=== PATIENT | female | born 1980 | race Caucasian/White ===

== ENCOUNTER → 2016-11-14 | Outpatient (CLI) | payer BC ==
--- NOTE | 2016-11-14 09:11 | MM ---
Reason for exam: screening (asymptomatic). Baseline mammogram. History: Family history of breast cancer in paternal aunt at age 47. Took hormonal contraceptives for 16 years beginning at age 15. Physical Findings: Nurse did not find any significant physical abnormalities on exam. MG Screening Mammo w CAD Bilateral CC and MLO view(s) were taken. The breast tissue is heterogeneously dense. This may lower the sensitivity of mammography. There is no discrete abnormality. These results were verbally communicated with the patient and result sheet given to the patient on 11/14/16. ASSESSMENT: Negative, BI-RAD 1 RECOMMENDATION: Routine screening mammogram of both breasts at age 39.
== END | disposition home or self-care (01) ==
LOC: RADMAMWWP 07:56
PROVIDERS: ATTEND Obstetrics & Gynecology
DX: Z12.31 Encounter for screening mammogram for malignant neoplasm of breast (principal)

== ENCOUNTER 2019-07-06 09:08 | Emergency (ER) | payer BC, OTHER ==
[2019-07-06 09:14] VITALS: BP 138/87; PULSE 72; RESP 18; TEMP 97.9
--- NOTE | 2019-07-06 09:25 | ED ---
Upper Extremity HPI - General Chief Complaint: Extremity Injury, Upper Stated Complaint: IHS LT wrist injury Time Seen by Provider: 07/06/19 09:14 Source: patient, RN notes reviewed, old records reviewed Mode of arrival: ambulatory Limitations: no limitations - History of Present Illness Initial Comments: Patient is a pleasant 39-year-old female who presents for today with left wrist and hand pain. 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 Patient states that she fell on outstretched hand. She reports pain is mainly over the distal ulna and fourth and fifth digit. - Related Data Previous Rx's Medication Instructions Recorded Ibuprofen [Motrin] 600 mg PO Q8HR PRN #20 tab 07/06/19 Allergies Allergy/AdvReac Type Severity Reaction Status Date / Time No Known Allergies Allergy Verified 07/06/19 09:13 Review of Systems ROS Statement: Those systems with pertinent positive or pertinent negative responses have been documented in the HPI. ROS Other: All systems not noted in ROS Statement are negative. Past Medical History Past Medical History: Thyroid Disorder History of Any Multi-Drug Resistant Organisms: None Reported Past Surgical History: Section, Tubal Ligation Past Psychological History: No Psychological Hx Reported Smoking Status: Never smoker Past Alcohol Use History: Occasional Past Drug Use History: None Reported General Exam - General Exam Comments Initial Comments: 39-year-old. Alert and oriented 3. No distress. Limitations: no limitations General appearance: alert, in no apparent distress Head exam: Present: atraumatic, normocephalic, normal inspection Eye exam: Present: normal appearance, PERRL, EOMI. Absent: scleral icterus, conjunctival injection, periorbital swelling ENT exam: Present: normal exam, mucous membranes moist Neck exam: Present: normal inspection. Absent: tenderness, meningismus, lymphadenopathy Respiratory exam: Present: normal lung sounds bilaterally. Absent: respiratory distress, wheezes, rales, rhonchi, stridor Cardiovascular Exam: Present: regular rate, normal rhythm, normal heart sounds. Absent: systolic murmur, diastolic murmur, rubs, gallop, clicks GI/Abdominal exam: Present: soft, normal bowel sounds. Absent: distended, tenderness, guarding, rebound, rigid Extremities exam: Present: normal inspection, full ROM, normal capillary refill. Absent: tenderness, pedal edema, joint swelling, calf tenderness Left Elbow exam: Present: normal inspection, full ROM Forearm Wrist exam: Present: normal inspection, full ROM Hand Wrist exam: Present: full ROM, tenderness (Patient has some tenderness, and swelling over the left distal ulna.), swelling. Absent: normal inspection Neuro motor exam: Present: wrist extension intact, thumb opposition intact, thumb IP flexion intact, thumb adduction intact, fingers 2-5 abduction intact Vascular: Present: normal capillary refill Back exam: Present: normal inspection Neurological exam: Present: alert, oriented X3, CN II-XII intact Psychiatric exam: Present: normal affect, normal mood Skin exam: Present: warm, dry, intact, normal color. Absent: rash Course Vital Signs 07/06/19 09:10 Temperature 97.9 F Pulse Rate 72 Respiratory 18 Rate Blood Pressure 138/87 O2 Sat by Pulse 97 Oximetry Procedures - Orthopedic Splinting/Casting Injury #1 Side: left Upper Extremity Immobilizer: ulnar gutter, Sea wrap, synthetic pre-padded splint Medical Decision Making - Medical Decision Making Patient is a 39-year-old female presents with left wrist and hand pain. Symptoms started after she tripped and fell landing on outstretched hand and she did this while leaving work in the parking lot. Patient pain is mainly over the distal ulna. Patient at this time has normal wrist and hand x-ray. No evidence of fracture. Patient was placed in these ulnar gutter splint for support for likely a sprain. Advised Patient follow up with orthopedic symptoms continue to persist. Discussed anti-inflammatory medicine for pain. All questions answered. - Radiology Data Radiology results: report reviewed N and wrist x-rays are reviewed and negative for any acute osseous lesion. Disposition Clinical Impression: Wrist pain, left, Fall, Wrist sprain Disposition: HOME SELF-CARE Condition: Good Instructions (If sedation given, give patient instructions): Wrist Injury (ED) Additional Instructions: Please use medication as discussed. Please follow up with family doctor if symptoms have not improved over the next two days. Please return to the emergency room if your symptoms increase or worsen or for any other concerns. Prescriptions: Ibuprofen [Motrin] 600 mg PO Q8HR PRN #20 tab PRN Reason: Pain Is patient prescribed a controlled substance at d/c from ED?: No Referrals: Fatou Lange DO [Primary Care Provider] - 1-2 days Ruddy Kay DO [Medical Doctor] - 1-2 days Time of Disposition: 10:01
--- NOTE | 2019-07-06 09:39 | XR ---
EXAMINATION TYPE: XR wrist complete LT , 4 VIEWS DATE OF EXAM ORDERED: 07/06/2019 HISTORY: pain. COMPARISON: None. FINDINGS: No fracture, dislocation or other acute osseous lesion is seen. IMPRESSION: NO ACUTE OSSEOUS LESION.
--- NOTE | 2019-07-06 09:41 | XR ---
EXAMINATION TYPE: XR hand complete LT , 3 VIEWS DATE OF EXAM ORDERED: 07/06/2019 HISTORY: pain, fall. COMPARISON: None. FINDINGS: Seen. IMPRESSION: NO ACUTE OSSEOUS LESION.
== END 2019-07-06 10:15 | disposition home or self-care (01) ==
LOC: EC 09:08
DX: S63.502A Unspecified sprain of left wrist, initial encounter (principal); W01.0XXA Fall on same level from slipping, tripping and stumbling without subsequent striking against object, initial encounter; Y93.01 Activity, walking, marching and hiking; Y92.69 Other specified industrial and construction area as the place of occurrence of the external cause; Y99.0 Civilian activity done for income or pay
CPT/HCPCS: 29125; 99284

== ENCOUNTER → 2019-07-13 | Outpatient (CLI) | payer OTHER ==
--- NOTE | 2019-07-13 11:17 | XR ---
EXAMINATION TYPE: XR wrist complete LT , 4 VIEWS DATE OF EXAM ORDERED: 07/13/2019 HISTORY: Fall. COMPARISON: Previous study dated 07/06/2019. FINDINGS: No fracture, dislocation or other acute osseous lesion is seen. IMPRESSION: NO ACUTE OSSEOUS LESION.
== END | disposition home or self-care (01) ==
LOC: RADXRMAIN 10:10
PROVIDERS: ATTEND Emergency Medicine
DX: S60.212D Contusion of left wrist, subsequent encounter (principal)

== ENCOUNTER → 2020-08-12 | Outpatient (CLI) | payer OTHER ==
--- NOTE | 2020-08-18 10:43 | MM ---
Reason for exam: screening (asymptomatic). Last mammogram was performed 3 years and 9 months ago. History: Family history of breast cancer in paternal aunt at age 47. Took hormonal contraceptives for 16 years beginning at age 15. Physical Findings: A clinical breast exam by your physician is recommended on an annual basis and results should be correlated with mammographic findings. MG Screening Mammo w CAD Bilateral CC and MLO view(s) were taken. Prior study comparison: November 14, 2016, bilateral MG screening mammo w CAD. The breast tissue is heterogeneously dense. This may lower the sensitivity of mammography. Focal asymmetry right upper outer quadrant. No significant changes when compared with prior studies. ASSESSMENT: Benign, BI-RAD 2 RECOMMENDATION: Routine screening mammogram of both breasts in 1 year.
== END | disposition home or self-care (01) ==
LOC: RADMAMWWP 13:55
PROVIDERS: ATTEND Obstetrics & Gynecology
DX: Z12.31 Encounter for screening mammogram for malignant neoplasm of breast (principal); Z80.3 Family history of malignant neoplasm of breast
CPT/HCPCS: 77067

== ENCOUNTER → 2020-08-20 | Outpatient (CLI) | payer OTHER ==
--- NOTE | 2020-08-20 11:52 | US ---
EXAMINATION TYPE: US pelvic complete DATE OF EXAM: 08/20/2020 COMPARISON: 01/28/2013 CLINICAL HISTORY: N93.8 Other specified abnormal uterine and vaginal. TECHNIQUE: Transabdominal (TA). Date of LMP: Not given EXAM MEASUREMENTS: Uterus: 11.1 x 6.8 x 6.5 cm Endometrial Stripe: 0.7 cm Right Ovary: 2.6 x 1.2 x 1.5 cm Left Ovary: 1.8 x 1.1 x 1.4 cm 1. Uterus: bulky fibroid, retroverted uterus, largest fibroid measuring 5.7 x 5.2 x 5.8cm 2. Endometrium: not well visualized due to fibroids 3. Right Ovary: wnl 4. Left Ovary: wnl 5. Bilateral Adnexa: wnl 6. Posterior cul-de-sac: wnl IMPRESSION: Multiple uterine masses most likely represent leiomyomata.
[2020-08-20 12:19] LABS: T4, Free (Free Thyroxine) 1.04 ng/dL (0.78-2.19)
[2020-08-20 17:18] LABS: Estradiol 128.4 pg/mL; Follicle Stimulating Hormone 17.6 mIU/mL; Prolactin 6.4 ng/mL (2.8-29.2)
== END | disposition home or self-care (01) ==
LOC: RADUSWWP 10:14
PROVIDERS: ATTEND Obstetrics & Gynecology
DX: D25.9 Leiomyoma of uterus, unspecified (principal)
CPT/HCPCS: 76856; 82670; 83001; 84146; 84439; 84443; 84479

== ENCOUNTER → 2020-10-21 | Outpatient (CLI) | payer OTHER ==
[2020-10-21 12:05] LABS: African American GFR (CKD) >90 (>60 ml/min/1.73 sqM); Anion Gap 9 mmol/L; Blood Urea Nitrogen 16 mg/dL (7-17); Calcium 9.7 mg/dL (8.4-10.2); Carbon Dioxide 22 mmol/L (22-30); Chloride 106 mmol/L (98-107); Glucose 97 mg/dL (74-99); Non-African American GFR(CKD) >90 (>60 ml/min/1.73 sqM); Potassium 4.9 mmol/L (3.5-5.1); Sodium 137 mmol/L (137-145)
[2020-10-21 12:06] LABS: Basophils # (A) 0.1 k/uL (0-0.2); Basophils % (A) 1 %; Eosinophils # (A) 0.1 k/uL (0-0.7); Eosinophils % (A) 2 %; HGB 14.4 gm/dL (11.4-16.0); Lymphocytes % (A) 29 %; MCH 31.2 pg (25.0-35.0); MCHC 32.8 g/dL (31.0-37.0); MCV 95.1 fL (80.0-100.0); Monocytes # (A) 0.4 k/uL (0-1.0); Monocytes % (A) 6 %; Neutrophils # (A) 4.3 k/uL (1.3-7.7); Neutrophils % (A) 61 %; Platelet Count 369 k/uL (150-450); RBC 4.63 m/uL (3.80-5.40); RDW 12.8 % (11.5-15.5); WBC 7.1 k/uL (3.8-10.6)
== END | disposition home or self-care (01) ==
LOC: LABPAT 11:09
PROVIDERS: ATTEND Obstetrics & Gynecology
DX: Z01.812 Encounter for preprocedural laboratory examination (principal)
CPT/HCPCS: 36415; 80048; 85025

== ENCOUNTER 2020-10-28 05:56 | Observation (INO) | payer OTHER ==
[2020-10-22 10:21] VITALS: BMI 33.3
--- NOTE | 2020-10-27 17:24 | P.HPOB ---
History of Present Illness H&P Date: 10/27/20 Chief Complaint: Menorrhagia and fibroid uterus Patient is a 40-year-old female with heavy vaginal bleeding and known fibroid uterus. Symptoms of heavy bleeding has been persistent and is causing her significant discomfort and limits her ability to function well. It is noted she has a 5 cm fibroid and otherwise bulky uterus. She was offered IUD and hormonal treatments and Lysteda but she would prefer a permanent fix as her uterus is enlarged and causes her discomfort along with the heavy bleeding. She is scheduled for a robotic-assisted left scopic hysterectomy with bilateral salpingectomy possible CHAYA and possible BSO. Risks/benefits/alternatives to this procedure were reviewed with the patient in detail and all questions were answered for her prior to proceeding to the operating room. On physical exam vital signs are stable and afebrile. Heart regular, lungs clear, extremities without pain. Abdomen is soft fibroid uterus is noted. Bowel sounds are noted. Assessment menorrhagia with fibroid uterus. Plan robotic-assisted laps up hysterectomy with BSO possible CHAYA and BSO Past Medical History Past Medical History: Thyroid Disorder History of Any Multi-Drug Resistant Organisms: None Reported Past Surgical History: Section, Tubal Ligation Past Anesthesia/Blood Transfusion Reactions: No Reported Reaction Past Psychological History: Anxiety Smoking Status: Never smoker Past Alcohol Use History: Occasional Past Drug Use History: None Reported - Past Family History Mother Family Medical History: No Reported History Medications and Allergies Home Medications Medication Instructions Recorded Confirmed Type Levothyroxine Sodium 88 mcg PO DAILY 10/22/20 10/22/20 History busPIRone HCl [Buspar] 10 mg PO DAILY 10/22/20 10/22/20 History Allergies Allergy/AdvReac Type Severity Reaction Status Date / Time No Known Allergies Allergy Verified 10/22/20 10:12 Exam Osteopathic Statement: *. No significant issues noted on an osteopathic structural exam other than those noted in the History and Physical/Consult. - OBG Physical Exam Breast: both: normal (no masses) Abdomen: Fibroids Abdomen: bowel sounds normal, no diffuse tenderness, no bruit present, no guarding noted, no hepatomegaly, no splenomegaly, no mass Vulva: both: normal Vagina: normal moisture, no discharge Cervix: no lesion, no discharge Uterus: normal size, enlarged, normal contour Adnexa: Fibroids Adnexa: both: normal Anus/Rectum: normal perianal skin, no rectal mass, no hemorrhoids, heme negative
[~2020-10-28 05:56] MED LIST: DEXAMETHASONE SOD PHOSPHATE 4 MG/ML 1 ML VIAL IV ONE; HYDROmorphone 0.5 MG/0.5 ML SYRINGE IVP PRN; ONDANSETRON 4 MG/2 ML VIAL IVP ONE
[2020-10-28] MEDS: LACTATED RINGERS 1,000 ML IV SCH (06:45)
[2020-10-28] MEDS ORDERED: SCOPOLAMINE 1.5MG/72HR PATCH TRANSDERM ONE (07:15)
[2020-10-28] MEDS ORDERED: HYDROmorphone (PF) 1 MG/ML ONE (07:25)
[2020-10-28] MEDS ORDERED: NEOSTIGMINE 1 MG/ML 10 ML VIAL ONE (07:25)
[2020-10-28] MEDS ORDERED: SUCCINYLCHOLINE CHLORIDE 100 MG/5 ML SYR IV ONE (07:25)
[2020-10-28] MEDS ORDERED: KETOROLAC 15 MG/ML 1 ML VIAL ONE (07:25)
[2020-10-28] MEDS ORDERED: LIDOCAINE 1% INJ 10MG/ML (20 ML MDV) ONE (07:25)
[2020-10-28] MEDS ORDERED: PROPOFOL 10 MG/ML 20 ML VIAL IV ONE (07:25)
[2020-10-28] MEDS ORDERED: PHENYLEPHRINE-0.9% NACL SYG 1,000 MCG/10 ML SYRINGE ONE (07:25)
[2020-10-28] MEDS ORDERED: GLYCOPYRROLATE 0.2 MG/ML 2 ML VIAL ONE (07:25)
[2020-10-28] MEDS ORDERED: ROCURONIUM 10 MG/ML (5 ML VIAL) IV ONE (07:25)
[2020-10-28] MEDS ORDERED: fentaNYL (PF) 50 MCG/ML 2 ML AMP ONE (07:25)
[2020-10-28] MEDS ORDERED: MIDAZOLAM 2 MG/2 ML VIAL ONE (07:25)
[2020-10-28] MEDS ORDERED: LIDOCAINE 0.5% (PF) 5 MG/ML (50 ML SDV) SQ ONE (08:07)
[2020-10-28] MEDS ORDERED: ONDANSETRON 4 MG/2 ML VIAL IVP PRN (09:16)
[2020-10-28] MEDS ORDERED: Acetaminophen-Codeine 300-30mg TAB PO PRN ×2 (09:16)
[2020-10-28] MEDS ORDERED: SIMETHICONE 80 MG CHEWABLE PO PRN (09:16)
[2020-10-28] MEDS ORDERED: LACTATED RINGERS 1,000 ML IV ONE (09:20)
--- NOTE | 2020-10-28 09:22 | P.OP ---
Date of Procedure: 10/28/20 Preoperative Diagnosis: Fibroid uterus: Dysfunctional uterine bleeding Postoperative Diagnosis: Same Procedure(s) Performed: Robotic-assisted laparoscopic hysterectomy with bilateral salpingectomy Anesthesia: MICK Surgeon: Candelario Rees Trial Examiner #1: Irene Fontaine Estimated Blood Loss (ml): 50 IV fluids (ml): 900 Urine output (ml): 250 Pathology: other (Uterus, cervix and fallopian tubes) Condition: stable Disposition: floor Operative Findings: Grossly enlarged uterus with large posterior fibroid incidentally found on Filshie clip which was also removed Description of Procedure: Patient was taken to the operating suite where a general anesthetic was found be adequate. She was prepped and draped in normal sterile fashion and placed in the dorsal lithotomy position. Initially a speculum was inserted in the vagina and the anterior lip surface identified and grasped with a Allis clamp. Uterus was then sounded to 12 cm cervix was dilated. Cup sizes measured 3 cm. Sutures were placed at 3 and 9 and a Gissell manipulator was inserted without difficulty. All other incidents were then removed and a Sinha catheter was placed. Gloves were then changed and attention was turned to abdominal portion procedure where 3 mL a course of Marcaine was injected approximately 12 cm superior to the point of maximal Ascent. Through this injected anesthetic and 8 mm skin incision made and a 5 mm optical trocar and sleeve were then inserted without difficulty. Once peritoneal placement was assured gas was left fully insufflate the abdomen and 2 lateral ports were placed proxy same level the umbilicus 12 cm lateral to the umbilicus. These were 8 mm robotic ports. Fourth port and sleeve was then inserted through a 1 cm incision between the left lateral and the medial port and the camera port was exchanged for a robotic port. Robot was brought in and docked once fully docked a scissor was placed on one arm and a [place] grasper in the 3R. At this point we did break scrub and go to the console. Observations pelvis were noted. Grossly enlarged uterus with large posterior fibroid. First the left fallopian tube was identified and the mesosalpinx tissue underneath it was cauterized and transected and the tube was removed. Once this was accomplished utero-ovarian ligament was identified cauterized transected all the way to the round ligament. Remley was then cauterized and transected and anterior posterior leafs the broad ligament were felt. Staying close to the uterus the vasculature along the uterine border was cauterized and transected to the bladder flap bladder flap was then entered and undermining with the [place] and incised with the scissor was carried across face uterus and bladder was bluntly dissected out of the operative field. Once this was accomplished right-sided uterus was developed similarly. Once completed balloon was blown up in the Gissell manipulator and an anterior colpotomy was made. Following in a counterclockwise fashion cheating head when necessary to maintain excellent hemostasis the cup was followed and once the cervix was from vagina and the uterus was brought down into the vagina and pneumoperitoneum was maintained. Pedicles were verified hemostatic and once hemostasis was felt to be complete incidents were exchanged for a cardia grasper and a make suture cut and using to OB lock suture the vaginal cuff was reapproximated. Excellent hemostasis is noted and suction irrigation of the area was performed. Once completed all incidents removed and gas allowed expel from the abdomen. 5 deep breaths were provided during this process. At this point I did do a cystoscopy noting good flow from both ureteral jets and Dr. Fontaine close the incision subcuticularly. The remaining Marcaine was injected around the incisions. Sinha catheter was then replaced and sponge, lap, needle counts were all correct 2. Patient was then taken to the recovery room in stable and satisfactory condition.
[2020-10-28] MEDS: KETOROLAC 15 MG/ML 1 ML VIAL IVP PRN (15:10)
--- NOTE | 2020-10-28 16:50 | US ---
EXAMINATION TYPE: US venous doppler duplex LE DATE OF EXAM: 10/28/2020 4:36 PM COMPARISON: NONE CLINICAL HISTORY: discomfort to lower posterior calves. bilateral calf pain after hysterectomy surger y this am. No h/o dvt SIDE PERFORMED: Bilateral TECHNIQUE: The lower extremity deep venous system is examined utilizing real time linear array sonog carolyn with graded compression, doppler sonography and color-flow sonography. VESSELS IMAGED: Common Femoral Vein Deep Femoral Vein Greater Saphenous Vein * Femoral Vein Popliteal Vein Small Saphenous Vein * Proximal Calf Veins (* superficial vessels) Right Leg: Negative for DVT Left Leg: Negative for DVT IMPRESSION: No evidence for DVT.
[2020-10-28 19:38] VITALS: RESP 18
[2020-10-28] MEDS ORDERED: METOCLOPRAMIDE 5 MG/ML 2 ML VIAL IVP PRN (20:27)
[2020-10-28] MEDS: SENNOSIDES-DOCUSATE SODIUM 1 EACH TAB PO SCH (22:01)
[2020-10-29] MEDS: LACTATED RINGERS 1,000 ML IV SCH (02:55)
[2020-10-29 06:17] LABS: Basophils % (A) 0 %; Eosinophils # (A) 0.1 k/uL (0-0.7); Eosinophils % (A) 1 %; HGB 12.8 gm/dL (11.4-16.0); Lymphocytes # (A) 1.8 k/uL (1.0-4.8); Lymphocytes % (A) 16 %; MCH 31.9 pg (25.0-35.0); MCHC 33.8 g/dL (31.0-37.0); MCV 94.3 fL (80.0-100.0); Mean Platelet Volume 7.1; Monocytes # (A) 0.6 k/uL (0-1.0); Monocytes % (A) 5 %; Neutrophils # (A) 8.7 k/uL (1.3-7.7); Neutrophils % (A) 76 %; Platelet Count 255 k/uL (150-450); RBC 4.03 m/uL (3.80-5.40); RDW 12.9 % (11.5-15.5); WBC 11.4 k/uL (3.8-10.6)
--- NOTE | 2020-10-29 09:22 | P.DS ---
Providers Date of admission: 10/28/20 23:16 Expected date of discharge: 10/29/20 Attending physician: Candelario Rees Primary care physician: April Baptiste [facility] [place] Course: Patient is doing very well postop day 1. She is involuting, voiding and tolerating her diet. She voices no complaints and she is stable for discharge. Her vital signs are stable and afebrile. Heart regular, lungs clear, extremities without pain. Abdomen soft incisions are intact and she is passing flatus. All questions are answered for her and discharge instructions were thoroughly reviewed. Prescription for Motrin and Tylenol 3 reported to the pharmacy. She is stable for discharge at this time. Patient Condition at Discharge: Good Plan - Discharge Summary Discharge Rx Participant: Yes New Discharge Prescriptions: New Ibuprofen [Motrin] 600 mg PO Q6HR PRN #30 tab PRN Reason: Pain Acetaminophen-Codeine 300-30mg [Tylenol #3] 1 tab PO Q4H PRN #30 tablet PRN Reason: Pain No Action busPIRone HCl [Buspar] 10 mg PO DAILY Levothyroxine Sodium 88 mcg PO DAILY Discharge Medication List Levothyroxine Sodium 88 mcg PO DAILY 10/22/20 [History] busPIRone HCl [Buspar] 10 mg PO DAILY 10/22/20 [History] Acetaminophen-Codeine 300-30mg [Tylenol #3] 1 tab PO Q4H PRN #30 tablet 10/29/20 [Rx] Ibuprofen [Motrin] 600 mg PO Q6HR PRN #30 tab 10/29/20 [Rx] Follow up Appointment(s)/Referral(s): Candelario Rees DO [Doctor of Osteopathic Medicine] - 1 Week Activity/Diet/Wound Care/Special Instructions: No heavy lifting, limit stairs and driving, and complete pelvic rest. If any high temperatures, heavy bleeding, or severe pain call my office tub baths for 2 weeks
[2020-10-29] MEDS: SENNOSIDES-DOCUSATE SODIUM 1 EACH TAB PO SCH (09:51)
[2020-10-29] MEDS: KETOROLAC 15 MG/ML 1 ML VIAL IVP PRN (09:51)
[2020-10-29 10:43] VITALS: BP 112/70; PULSE 65; TEMP 98.4
== END 2020-10-29 13:55 | disposition home or self-care (01) ==
LOC: OR 05:56 → 6PED 10:14 → OR 20:23 → 6PED 23:16
PROVIDERS: ADMIT Obstetrics & Gynecology; ATTEND Obstetrics & Gynecology
DX: D25.1 Intramural leiomyoma of uterus (principal); N92.0 Excessive and frequent menstruation with regular cycle; N72 Inflammatory disease of cervix uteri; N93.8 Other specified abnormal uterine and vaginal bleeding; E07.9 Disorder of thyroid, unspecified; F41.9 Anxiety disorder, unspecified; R51.9 Headache, unspecified; R11.0 Nausea; Z98.891 History of uterine scar from previous surgery; Z98.51 Tubal ligation status; Z79.890 Hormone replacement therapy; Z79.899 Other long term (current) drug therapy
CPT/HCPCS: 58552; S2900; 81025; 85025; 86850; 86900; 86901; 88307; 93970